=== PATIENT | female | born 1950 | race Caucasian/White ===

== ENCOUNTER 2018-11-11 06:47 | Day surgery (SDC) | payer MEDICARE, BC ==
[~2018-11-11] VITALS: Ht 154.9 cm; Wt 49.9 kg
[~2018-11-11 06:47] MED LIST: ACETAMINOPHEN500 M1 PO; ALENDRONATE SOD70 MG PO; BIOFREEZE4 % TOP; CALCIUM CITRATE1 TAB PO; FLONASE SE27.5 MCG/S INT; MONTELUKAST SOD10 MG PO; MULTI 50+ PO; MULTIVITAMI9 PO; NORCO1 TA1 PO; RANITIDINE150 M1 PO; RESTASIS0.05 % OP; SLOW RELEASE IR45 MG PO; SYNTHROID88 MCG PO; VITAMIN C1000 MG PO; VOLTAREN GEL; [UNRECOGNIZED DRUG - OTHER] OU
[2018-11-11 09:00] VITALS: BP 109/55
== END 2018-11-11 09:15 | disposition home or self-care (01) ==
LOC: ORM 06:47
PROVIDERS: ATTEND Surgery
PROC: 0DJD8ZZ Inspection of Lower Intestinal Tract, Via Natural or Artificial Opening Endoscopic (ICD-10-PCS; principal; 2018-11-11)
DX: K57.30 Diverticulosis of large intestine without perforation or abscess without bleeding (principal); Q43.8 Other specified congenital malformations of intestine; K64.8 Other hemorrhoids; E03.9 Hypothyroidism, unspecified

== ENCOUNTER 2021-01-12 11:22 | Observation (INO) | payer MEDICARE, BC ==
[~2021-01-12] VITALS: Ht 154.9 cm; Wt 47.1 kg
--- NOTE | 2021-01-12 11:25 | NUR ---
TO ROOM VIA EMS
--- NOTE | 2021-01-12 11:30 | NUR ---
SPOUSE AT BEDSIDE
--- NOTE | 2021-01-12 11:40 | NUR ---
POC REVIEWED,PATIENT COMFORTABLE
--- NOTE | 2021-01-12 12:30 | NUR ---
PATIENT RESTING QUIETLY. SPOUSE AT BEDSIDE
--- NOTE | 2021-01-12 13:30 | NUR ---
Patient states she feels less pain, good relief from mediaction. call yang in reach
--- NOTE | 2021-01-12 14:30 | NUR ---
WENT TO DC PATIENT AND PATIENT REQUESTED A CT TO RE-VERIFY THAT THERE ARE NO BONES BROKEN SHE FEELS THERE IS ALOT OF PAIN. PHYSICIAN AWARE. DC DELAYED,CT ORDERED.
--- NOTE | 2021-01-12 17:21 | NUR ---
PHYSICIAN TO BEDSIDE REGARDING CT FINDINGS AND POC
[2021-01-12 18:13] VITALS: BP 98/44
--- NOTE | 2021-01-12 18:26 | NUR ---
RESTING QUIETLY,AWAITING ADMISSION. SPOUSE AT BEDSIDE.
[2021-01-12 18:29] LABS: HEMATOCRIT 35.8 % (37.0-47.0); HEMOGLOBIN 11.7 g/dl (12.0-16.0); IMMATURE GRANULOCYTES 0.5 % (0.0-5.0); MEAN CELL VOLUME 96.8 fL CALC (80.0-100.0); MEAN CORPUSCULAR HGB 31.6 pG CALC (26.0-32.0); MEAN CORPUSCULAR HGB CONC 32.7 g/dL CAL (32.0-36.0); NEUT# 7.38 thou/uL (2.00-7.15); RED BLOOD COUNT 3.7 mill/uL (4.20-5.60); RED CELL DISTRI WIDTH 12.7 % (11.5-15.5)
[2021-01-12 18:46] LABS: ALKALINE PHOSPHATASE 73 u/l (38-126); ANION GAP 9 (6-22 (CALC)); BUN 14 mg/dL (8-23); BUN/CREATININE RATIO 32 (12-20 (CALC)); CARBON DIOXIDE 28 mmol/l (22-30); CHLORIDE 101 mmol/l (95-108); CREATININE 0.4 mg/dL (0.5-1.0); GFR > 60 ML/MIN (>=60 (CALC)); GFR FOR AFR.AMER. > 60 ML/MIN (>=60 (CALC)); POTASSIUM 3.9 mmol/l (3.5-5.1); SGOT/AST 30 u/l (9-36); SODIUM 134 mmol/l (137-146)
[2021-01-12 18:56] LABS: BILIRUBIN, TOTAL 0.6 mg/dL (0.0-1.4)
--- NOTE | 2021-01-12 19:09 | NUR ---
RECEIVED REPORT FROM KENNETH FLORES. ASSUMED CARE OF PATIENT. Reassessment of patient completed. No distress noted.
--- NOTE | 2021-01-12 20:20 | NUR ---
Reassessment of patient completed. No distress noted. REQUESTED WATER.
--- NOTE | 2021-01-12 22:30 | NUR ---
ATTEMPTED TO CALL REPORT, SECOND ATTEMPT.
--- NOTE | 2021-01-12 22:42 | NUR ---
Admission Note Report Given to: GRANT Transported by: X Wheelchair Stretcher Transported with: X Nurse Transporter X Patent IV O2 X Cyber Security Systems Engineer Location: ICU X [facility]
[2021-01-12 23:00] VITALS: BP 132/63
--- NOTE | 2021-01-12 23:50 | NUR ---
PT RECEIVED FROM ED TO ROOM 261. ARRIVES VIA W/C ACCOMPANIED BY TANJA COOPER. PT AMBULATORY TO BED. GAIT UNSTEADY. PT C/O OF PAIN AT THIS TIME. ORIENTED TO UNIT, ROOM, CALL POMPA, LIGHTS, TV. ICE WATER PROVIDED. CALL POMPA WITHIN REACH. AGREES TO CALL PRN.
--- NOTE | 2021-01-12 23:57 | NUR ---
PHYSICAL ASSESMENT COMPLETE. PT C/O PAIN AND DISCOMFORT. IV MORPHINE PROVIDED. SCHEDULED MEDICATIONS AND PRN MEDICATION ADMINISTERED, SEE E-MAR. [employer] SYSTEM IN PLACE PT HAS LIMITED MOBILITY. PT DENIES ANY NEEDS AT THIS TIME. PLAN OF CARE REVIEWED, PT DENIES QUESTIONS, VERBALIZES UNDERSTANDING. ITEMS WITHIN REACH, BED LOCKED IN LOW POSITION W/ BEDRAILS UP X2. CALL POMPA WITHIN REACH, AGREES TO CALL PRN.
[2021-01-13] VITALS: BP 105/62
--- NOTE | 2021-01-13 02:45 | NUR ---
PT LAYING IN BED WITH EYES CLOSED, APPEARS TO BE SLEEPING, APPEARS COMFORTABLE AND IN NO DISTRESS. RESPIRATIONS REGULAR AND UNLABORED. ITEMS REMAIN WITHIN REACH, CALL POMPA REMAINS WITHIN REACH. BED REMAINS LOCKED AND IN LOW POSITION WITH BEDRAILS UP X2. WILL CONTINUE TO MONITOR.
[2021-01-13 04:00] VITALS: BP 123/66
[2021-01-13 05:24] LABS: HEMATOCRIT 35.4 % (37.0-47.0); HEMOGLOBIN 11.3 g/dl (12.0-16.0); MEAN CELL VOLUME 97.5 fL CALC (80.0-100.0); MEAN CORPUSCULAR HGB 31.1 pG CALC (26.0-32.0); MEAN CORPUSCULAR HGB CONC 31.9 g/dL CAL (32.0-36.0); RED BLOOD COUNT 3.63 mill/uL (4.20-5.60); RED CELL DISTRI WIDTH 12.8 % (11.5-15.5)
[2021-01-13 05:31] LABS: ANION GAP 7 (6-22 (CALC)); BUN 10 mg/dL (8-23); BUN/CREATININE RATIO 22 (12-20 (CALC)); CARBON DIOXIDE 29 mmol/l (22-30); CHLORIDE 103 mmol/l (95-108); CREATININE 0.5 mg/dL (0.5-1.0); GFR > 60 ML/MIN (>=60 (CALC)); GFR FOR AFR.AMER. > 60 ML/MIN (>=60 (CALC)); POTASSIUM 4.2 mmol/l (3.5-5.1); SODIUM 135 mmol/l (137-146)
[2021-01-13 07:46] VITALS: BP 112/67
--- NOTE | 2021-01-13 08:00 | NUR ---
PATIENT IS RESTING IN BED. ASSESSMENT DONE. PATIENT IS ALERT AND ORIENT X3. PATIENT DENIES PAIN AT THIS TIME. REPS EVEN AND UNLABORED. TELE IN PLACE. PO FLUIDS PROVIDE. PATIENT DENIES ANY NEEDS AT THIS TIME. CALL LIGHT IN REACH.
[2021-01-13] MEDS ORDERED: OXYCOD-APAP1 TA1 PO (08:15)
[2021-01-13] MEDS ORDERED: SENNA REGULAR8.6 MG PO (08:15)
[2021-01-13 10:15] VITALS: BP 111/48
--- NOTE | 2021-01-13 12:03 | NUR ---
PATIENT IS EATING HER LUNCH. PATIENT DENIES NEEDS AT THIS TIME. CALL LIGHT IN REACH.
--- NOTE | 2021-01-13 12:03 | NUR ---
PATIENT IS SETUP FOR LUNCH. PATIENT DENIES NEEDS AT THIS TIME. TELE IN PLACE. CALL LIGHT IN REACH.
--- NOTE | 2021-01-13 14:34 | NUR ---
Discharge instructions given. Patient verbalizes understanding of same. Discharged in stable condition via Wheelchair to Home with staff. All belongings sent with pt.
== END 2021-01-13 14:34 | disposition home health service (06) ==
LOC: ED 11:22 → ED-I 17:29 → ED 17:58 → MS2 17:59
PROVIDERS: Emergency Medicine; Nurse Practitioner; ADMIT Internal Medicine; ATTEND Internal Medicine
DX: S22.41XA Multiple fractures of ribs, right side, initial encounter for closed fracture (principal); E03.9 Hypothyroidism, unspecified; M81.0 Age-related osteoporosis without current pathological fracture; W18.2XXA Fall in (into) shower or empty bathtub, initial encounter; Y93.E1 Activity, personal bathing and showering; Y92.002 Bathroom of unspecified non-institutional (private) residence as the place of occurrence of the external cause; Z20.822 Contact with and (suspected) exposure to COVID-19

== ENCOUNTER 2022-02-24 08:48 | Emergency (ER) | payer MEDICARE, BC ==
[2022-02-24] VITALS (18 sets, daily range): BP systolic 102–139; BP diastolic 42–69
[~2022-02-24] VITALS: Ht 154.9 cm; Wt 47.0 kg
[~2022-02-24 08:48] MED LIST changes: +OXYCOD-APAP1 TA1 PO; +SENNA REGULAR8.6 MG PO
[2022-02-24 09:18] LABS: HEMATOCRIT 41.7 % (37.0-47.0); HEMOGLOBIN 13.6 g/dl (12.0-16.0); IMMATURE GRANULOCYTES 0.5 % (0.0-5.0); MEAN CELL VOLUME 94.6 fL CALC (80.0-100.0); MEAN CORPUSCULAR HGB 30.8 pG CALC (26.0-32.0); MEAN CORPUSCULAR HGB CONC 32.6 g/dL CAL (32.0-36.0); NEUT# 12.22 thou/uL (2.00-7.15); RED BLOOD COUNT 4.41 mill/uL (4.20-5.60)
[2022-02-24 09:30] LABS: ALBUMIN 4.4 g/dL (3.2-5.0); ALKALINE PHOSPHATASE 112 u/l (38-126); ANION GAP 12 (6-22 (CALC)); BILIRUBIN, TOTAL 0.8 mg/dL (0.0-1.4); BUN 10 mg/dL (8-23); BUN/CREATININE RATIO 18 (12-20 (CALC)); CARBON DIOXIDE 31 mmol/l (22-30); CHLORIDE 98 mmol/l (95-108); CREATININE 0.5 mg/dL (0.5-1.0); GFR FOR AFR.AMER. > 60 ML/MIN (>=60 (CALC)); GFR OTHER RACES > 60 ML/MIN (>=60 (CALC)); LIPASE 13 u/l (23-300); POTASSIUM 4.2 mmol/l (3.5-5.1); SGOT/AST 40 u/l (9-36); SODIUM 137 mmol/l (137-146); TOTAL PROTEIN 7.9 g/dL (6.3-8.2)
[2022-02-24 12:55] LABS: URINE BILIRUBIN - DIPSTICK NEGATIVE (NEGATIVE); URINE BLOOD DIPSTICK TRACE-INTACT (NEGATIVE); URINE COLOR YELLOW; URINE GLUCOSE - DIPSTICK NEGATIVE (NEGATIVE); URINE KETONE 15 mg/dL (NEGATIVE); URINE LEUK ESTERASE NEGATIVE (NEGATIVE); URINE PROTEIN - DIPSTICK NEGATIVE (NEG-TRACE); URINE UROBILINOGEN - DIPSTICK 0.2 E.U./dL (0.2)
[2022-02-24 13:00] LABS: URINE NITRITE - DIPSTICK NEGATIVE (Negative)
[2022-02-24] MEDS ORDERED: MORPHINE SUL15 MG PO (15:08)
== END 2022-02-24 15:12 | disposition home or self-care (01) ==
LOC: ED 08:48
PROVIDERS: Family Medicine
DX: M48.54XA Collapsed vertebra, not elsewhere classified, thoracic region, initial encounter for fracture (principal); E03.9 Hypothyroidism, unspecified; Z20.822 Contact with and (suspected) exposure to COVID-19

== ENCOUNTER 2022-12-03 06:50 | Day surgery (SDC) | payer MEDICARE, BC ==
[~2022-12-03] VITALS: Ht 154.9 cm; Wt 49.9 kg
[~2022-12-03 06:50] MED LIST changes: +ACIDOPHILU4 PO; +EYE OU; +MORPHINE SUL15 MG PO; +OMEPRAZOLE DR40 MG PO
[2022-12-03 08:23] VITALS: BP 104/52
== END 2022-12-03 08:35 | disposition home or self-care (01) ==
LOC: ENDO 06:50 → ORM 08:30 → ENDO 08:35 → ORM 11:00
PROVIDERS: ATTEND Internal Medicine Gastroenterology
PROC: 0DB98ZX Excision of Duodenum, Via Natural or Artificial Opening Endoscopic, Diagnostic (ICD-10-PCS; principal; 2022-12-03)
PROC: 0DB78ZX Excision of Stomach, Pylorus, Via Natural or Artificial Opening Endoscopic, Diagnostic (ICD-10-PCS; 2022-12-03)
DX: K29.70 Gastritis, unspecified, without bleeding (principal); K29.80 Duodenitis without bleeding; K22.9 Disease of esophagus, unspecified; K31.9 Disease of stomach and duodenum, unspecified; K90.0 Celiac disease; M19.90 Unspecified osteoarthritis, unspecified site; E03.9 Hypothyroidism, unspecified; D63.8 Anemia in other chronic diseases classified elsewhere; Z90.49 Acquired absence of other specified parts of digestive tract; Z79.1 Long term (current) use of non-steroidal anti-inflammatories (NSAID)